=== PATIENT | male | born 1960 | race Caucasian/White ===

== ENCOUNTER 2017-09-09 14:28 | Emergency (ER) | payer BC, OTHER ==
[~2017-09-09] VITALS: Wt 73.8 kg
[2017-09-09] MEDS ORDERED: SOD CHLORIDE 0.9% 1,000 ML IV STA (15:38)
[2017-09-09] MEDS ORDERED: morphine 4 MG/ML VIAL IV STA (15:38)
[2017-09-09] MEDS ORDERED: ONDANSETRON 4 MG INJ IV STA (15:38)
[2017-09-09] MEDS ORDERED: SODIUM CHLORIDE 0.9% 1L BAG IV* STA (15:40)
[2017-09-09] MEDS ORDERED: PIPER-TAZO 3.375 GM IV (PMX) 50 ML IVPB STA (15:40)
[2017-09-09] MEDS ORDERED: ACETAMINOPHEN 325 MG TAB PO STA (15:42)
--- NOTE | 2017-09-09 16:35 | RADRPT ---
PROCEDURE: XR Chest. CLINICAL INDICATION: Shortness of breath. Possible sepsis TECHNIQUE: A single portable view of the chest was obtained. COMPARISON: None FINDINGS: The cardiomediastinal silhouette is within normal limits. The lungs and pleural spaces are clear. The soft tissues and osseous structures are unremarkable. IMPRESSION: No acute cardiopulmonary disease. RPTAT: HPNM Physician Christy Date Time Electronically viewed and signed by Reid Powers Physician on 09/09/2017 16:35 /
[2017-09-09] MEDS ORDERED: SOD CHLORIDE 0.9% 100 ML ONE (17:16)
[2017-09-09] MEDS ORDERED: IOHEXOL 300MG/ML 150 ML BTL ONE (17:16)
--- NOTE | 2017-09-09 17:47 | RADRPT ---
PROCEDURE: CT Abdomen and Pelvis with contrast. CLINICAL INDICATION: Left lower quadrant abdominal pain TECHNIQUE: CT scan of the abdomen and pelvis with contrast was performed . The patient was scanne d following the uncomplicated intravenous administration of 100 cc of Omnipaque 300. Coronal and sa gittal reformatted images were obtained from the axial source images. Images were reviewed on a high -resolution PACS workstation. images. The calculated radiation dose measures 619.53 mGy centimeters. The CTDI measures 10.88 mGy. One or more of the following dose reduction techniques were used: - Automated exposure control. - Adjustment of the mA and/or kV according to patient size . - Use of iterative reconstruction technique. Images were reviewed on a high-resolution PACS workstation COMPARISON: None. FINDINGS: CT abdomen: The lung bases are clear. The heart size is normal, without pericardial thickening or effusion. Th e liver is normal in size and density without focal mass or intrahepatic biliary dilatation. Multipl e liver cysts are present. The spleen is normal in size and homogeneous in density. The stomach is partially collapsed, but is grossly unremarkable. The pancreas as visualized is normal. The gallb ladder and biliary tree are unremarkable and there is no evidence for biliary dilatation. The adren al glands are symmetric and normal. The kidneys are symmetrically unremarkable as well. There is un krystle-rotation of the left kidney with otherwise normal appearance. No renal calculus or obstructive u ropathy or mass lesion is seen. The aorta is of normal caliber. Aortic vascular calcifications are present. There is no retroperit [place] lymphadenopathy. The michelle hepatis region is clear. The bowel and mesentery, as visualized, are equally unremarkable. CT pelvis: The small bowel loops situated within the pelvis are unremarkable. The pelvic organs are normal. T he pelvic sidewalls and inguinal regions are clear. The sigmoid colon and rectum are remarkable for sigmoid diverticulosis. There is focal inflammation seen within the sigmoid colon consistent with a cute diverticulitis. The focal area of microperforation seen on the axial series image 126 noting ex traluminal air. No drainable fluid collection is identified. No evidence for a small bowel obstructi on. A normal appendix is identified. No mass, lymphadenopathy, or free fluid is seen. No acute inf lammation is seen. The bladder is collapsed, limiting evaluation. Bilateral fat containing inguinal hernias are seen, greater on the left. The surrounding osseous structures are remarkable for multilevel degenerative enthesopathy and degen erative disc disease. No osteolytic or osteoblastic lesion is detected. IMPRESSION: 1. Sigmoid diverticulosis with moderate acute diverticulitis noting focal, contained microperforatio n. No evidence for a drainable fluid collection at this time. 2. Multiple liver cysts. 3. Normal CT appearance of the appendix. RPTAT: PP .Gino Yan MD, MD Date Time Electronically viewed and signed by .Gino Yan MD, MD on 09/09/2017 17:47 .d/
--- NOTE | 2017-09-09 19:16 | ERD ---
ER Documentation Chief Complaint Chief Complaint sent by pmd for llq pain, diarrhea HPI 57-year-old male with no significant previous medical history refer to the ED by Dr. Chow for evaluation of abdominal pain. Patient was in his usual state of health until 6 days ago when after eating out in a restaurant he developed mild, crampy, generalized lower abdominal pain with 2-3 episodes of watery diarrhea per day. The pain has been worsening and now localized to left lower quadrant. Denies nausea or vomiting. No chest pain, palpitations or shortness of breath. No URI symptoms or cough. No anorexia. Subjective fevers. ROS All systems reviewed and are negative except as per history of present illness. Allergies Allergies: Coded Allergies: No Known Allergy (Unverified , 09/09/17) PMhx/Soc Medical and Surgical Hx: pt denies Medical Hx, pt denies Surgical Hx Hx Alcohol Use: No Hx Substance Use: No Hx Tobacco Use: No Smoking Status: Never smoker Physical Exam Vitals Vital Signs Date Time Temp Pulse Resp B/P Pulse Ox O2 Delivery O2 Flow Rate FiO2 09/09/17 18:30 99.2 73 18 97/60 96 Room Air 09/09/17 14:30 101.7 106 20 125/80 98 Physical Exam Const: Alert, moderate distress due to pain. Head: Atraumatic Eyes: Normal Conjunctiva ENT: Normal External Ears, Nose and Mouth. Neck: Full range of motion..~ No meningismus. Resp: Clear to auscultation bilaterally Cardio: Regular rate and rhythm, no murmurs Abd: Soft, left lower quadrant tenderness. No rebound or guarding. Skin: No petechiae or rashes Back: No midline or flank tenderness Ext: No cyanosis, or edema Neur: Awake and alert Psych: Normal Mood and Affect Result Diagram: 09/09/17 1550 09/09/17 1550 Results 24 hrs Laboratory Tests Test 09/09/17 15:50 White Blood Count 6.310^3/ul Red Blood Count 4.7010^6/ul Hemoglobin 14.5g/dl Hematocrit 43.9% Mean Corpuscular Volume 93.4fl Mean Corpuscular Hemoglobin 30.9pg Mean Corpuscular Hemoglobin Concent 33.0g/dl Red Cell Distribution Width 11.9% Platelet Count 80412^3/UL Mean Platelet Volume 11.2fl Neutrophils % 66.6% Lymphocytes % 18.8% Monocytes % 12.8% Eosinophils % 1.0% Basophils % 0.6% Nucleated Red Blood Cells % 0.0/100WBC Neutrophils # 4.210^3/ul Lymphocytes # 1.210^3/ul Monocytes # 0.810^3/ul Eosinophils # 0.110^3/ul Basophils # 0.010^3/ul Nucleated Red Blood Cells # 0.010^3/ul Prothrombin Time 14.0Sec Prothrombin Time Ratio 1.1 INR International Normalized Ratio 1.08 Activated Partial Thromboplast Time 32.6Sec Urine Color YELLOW Urine Clarity CLOUDY Urine pH 7.0 Urine Specific [place] 1.020 Urine Ketones NEGATIVEmg/dL Urine Nitrite NEGATIVEmg/dL Urine Bilirubin NEGATIVEmg/dL Urine Urobilinogen 2+mg/dL Urine Leukocyte Esterase NEGATIVELeu/ul Urine Microscopic RBC 0/HPF Urine Microscopic WBC 0/HPF Urine Mucus MANY/HPF Urine Hemoglobin NEGATIVEmg/dL Urine Glucose NEGATIVEmg/dL Urine Total Protein NEGATIVEmg/dl Sodium Level 140mmol/L Potassium Level 3.8mmol/L Chloride Level 101mmol/L Carbon Dioxide Level 28mmol/L Anion Gap 15 Blood Urea Nitrogen 9mg/dl Creatinine 0.94mg/dl Glucose Level 106mg/dl Lactic Acid Level 1.3mmol/L Calcium Level 8.7mg/dl Total Bilirubin 0.3mg/dl Direct Bilirubin 0.00mg/dl Indirect Bilirubin 0.3mg/dl Aspartate Amino Transf (AST/SGOT) 41IU/L Alanine Aminotransferase (ALT/SGPT) 38IU/L Alkaline Phosphatase 72IU/L Troponin I < 0.012ng/ml Total Protein 7.5g/dl Albumin 4.0g/dl Globulin 3.50g/dl Albumin/Globulin Ratio 1.14 Lipase 138U/L Current Medications Medications (Trade) Dose Ordered Sig/Vickie Route PRN Reason Start Time Stop Time Status Last Admin Dose Admin Sodium Chloride (NS) 1,000 ml @ 1,000 mls/hr Q1H STAT IV 09/09/17 15:38 09/09/17 16:39 DC 09/09/17 15:38 Morphine Sulfate (morphine) 4 mg ONCE STAT IV 09/09/17 15:38 09/09/17 15:40 DC 09/09/17 15:38 Ondansetron HCl (Zofran Inj) 4 mg ONCE STAT IV 09/09/17 15:38 09/09/17 15:40 DC 09/09/17 15:38 Sodium Chloride 2290 ml 2,290 ml BOLUS OVER 2 HOURS STAT IV* 09/09/17 15:40 09/09/17 15:42 DC 09/09/17 15:40 Piperacillin Sod/ Tazobactam Sod (Zosyn 3.375gm/ 50 ml (Pmx)) 50 ml @ 100 mls/hr ONCE STAT IVPB 09/09/17 15:40 09/09/17 16:09 DC 09/09/17 15:40 Acetaminophen (Tylenol Tab) 650 mg ONCE STAT PO 09/09/17 15:42 09/09/17 15:44 DC 09/09/17 15:42 IV Flush 10 ml 10 ml STK-MED ONCE .ROUTE 09/09/17 17:16 09/09/17 17:17 DC 09/09/17 17:29 Sodium Chloride (NS) 100 ml @ ud STK-MED ONCE .ROUTE 09/09/17 17:16 09/09/17 17:17 DC 09/09/17 17:30 Iohexol (Omnipaque 300mg/ ml) 150 ml STK-MED ONCE .ROUTE 09/09/17 17:16 09/09/17 17:17 DC 09/09/17 17:29 EK:51: Sinus rhythm. Ventricular rate 83. Normal CO and QRS. No acute ST -T wave changes. No ectopy. EP interpretation: Abnormal ECG. PROCEDURE: CT Abdomen and Pelvis with contrast. CLINICAL INDICATION: Left lower quadrant abdominal pain TECHNIQUE: CT scan of the abdomen and pelvis with contrast was performed . The patient was scanned following the uncomplicated intravenous administration of 100 cc of Omnipaque 300. Coronal and sagittal reformatted images were obtained from the axial source images. Images were reviewed on a high- resolution PACS workstation. images. The calculated radiation dose measures 619.53 mGy centimeters. The CTDI measures 10.88 mGy. One or more of the following dose reduction techniques were used: - Automated exposure control. - Adjustment of the mA and/or kV according to patient size . - Use of iterative reconstruction technique. Images were reviewed on a high-resolution PACS workstation COMPARISON: None. FINDINGS: CT abdomen: The lung bases are clear. The heart size is normal, without pericardial thickening or effusion. The liver is normal in size and density without focal mass or intrahepatic biliary dilatation. Multiple liver cysts are present. The spleen is normal in size and homogeneous in density. The stomach is partially collapsed, but is grossly unremarkable. The pancreas as visualized is normal. The gallbladder and biliary tree are unremarkable and there is no evidence for biliary dilatation. The adrenal glands are symmetric and normal. The kidneys are symmetrically unremarkable as well. There is under-rotation of the left kidney with otherwise normal appearance. No renal calculus or obstructive uropathy or mass lesion is seen. The aorta is of normal caliber. Aortic vascular calcifications are present. There is no retroperitoneal lymphadenopathy. The michelle hepatis region is clear. The bowel and mesentery, as visualized, are equally unremarkable. CT pelvis: The small bowel loops situated within the pelvis are unremarkable. The pelvic organs are normal. The pelvic sidewalls and inguinal regions are clear. The sigmoid colon and rectum are remarkable for sigmoid diverticulosis. There is focal inflammation seen within the sigmoid colon consistent with acute diverticulitis. The focal area of microperforation seen on the axial series image 126 noting extraluminal air. No drainable fluid collection is identified. No evidence for a small bowel obstruction. A normal appendix is identified. No mass, lymphadenopathy, or free fluid is seen. No acute inflammation is seen. The bladder is collapsed, limiting evaluation. Bilateral fat containing inguinal hernias are seen, greater on the left. The surrounding osseous structures are remarkable for multilevel degenerative enthesopathy and degenerative disc disease. No osteolytic or osteoblastic lesion is detected. IMPRESSION: 1. Sigmoid diverticulosis with moderate acute diverticulitis noting focal, contained microperforation. No evidence for a drainable fluid collection at this time. 2. Multiple liver cysts. 3. Normal CT appearance of the appendix. RPTAT: PP .Gino Yan MD, MD Date Time Electronically viewed and signed by .Gino Yan MD, MD on 09/09/2017 17:47 .d/ Procedures/MDM DOCUMENTS REVIEWED: ED nurse, physician referral REEXAMINATION/REEVALUATION: Time: 18:50. Doing well. Abdomen soft nontender. Pain resolved. Tolerating PO's. MEDICAL DECISION MAKIN-year-old male with no significant previous medical history refer to the ED by Dr. Chow for evaluation of left lower artery and abdominal pain. CT scan performed to evaluate for bowel obstruction, abdominal aortic aneurysm, obstructive uropathy, appendicitis, mass, radiculitis and reveals sigmoid diverticulitis with possible microperforation but no abscess or drainable fluid collection. Pain resolved in the ED with intravenous hydration , analgesics, and antiemetics. Zosyn given. Neurosurgery in the ED for over 3 hours. Multiple examinations were performed. At 19:00 he is doing well. Abdomen soft nontender. Pain is resolved and tolerating p.o.'s. Decision making regarding disposition with the patient and his . Patient be discharged on oral antibiotics, analgesics with close outpatient follow-up. Understands to the ED for any worsening symptoms. Counseled [patient and family] regarding diagnostic workup, diagnosis and need for followup. Understands to return to ED if symptoms recur, worsen or any other concerns. Departure Diagnosis: Primary Impression: Abdominal pain, acute, left lower quadrant Additional Impression: Acute diverticulitis Condition: Stable (Improved) AYANA GUILLERMO MD Sep 09, 2017 19:14
[2017-09-09] MEDS ORDERED: METR500T PO (19:18)
[2017-09-09] MEDS ORDERED: HYDR-906 PO (19:18)
[2017-09-09] MEDS ORDERED: CIPR500T4 PO (19:18)
[2017-09-09] MEDS ORDERED: IBUP-1542 PO (19:21)
[2017-09-09 20:05] VITALS: BP 122/79; PULSE 64; RESP 18; TEMP 99
== END 2017-09-09 20:05 | disposition home or self-care (01) ==
LOC: E/R 14:28
DX: K57.32 Diverticulitis of large intestine without perforation or abscess without bleeding (principal)
CPT/HCPCS: 36415; 71010; 74177; 80053; 81001; 83605; 83690; 84484; 85025; 85610; 85730; 87040; 87086; 93005; 96374; 96375; J2270; J2405; J2543; J7030; Q9967; Z7502; Z7610